=== PATIENT | male | born 1970 | race Caucasian/White ===

== ENCOUNTER → 2019-01-27 | Outpatient (CLI) | payer OTHER ==
[~2019-01-27] MED LIST: CIPROFLOXACIN500 M3 PO; FLAGYL500 MG PO; IBUPROFEN 800800 M1 PO; NORCO 5-325 TA1 EACH PO; PROBIOTIC1 EAC1 PO; PROTONIX40 MG PO; ZOFRAN ODT4 MG PO; ZOFRAN4 MG PO
== END ==
LOC: CAT 07:43
DX: N20.0 Calculus of kidney (principal); N28.1 Cyst of kidney, acquired